=== PATIENT | female | born 1990 | race Caucasian/White ===

== ENCOUNTER → 2017-07-30 | Outpatient (CLI) | payer OTHER ==
[~2017-07-30] MED LIST: LIDOCAINE 1%, 20ML ONE
== END ==
LOC: CFH 10:29
PROVIDERS: ATTEND Surgery
DX: N63.10 Unspecified lump in the right breast, unspecified quadrant (principal)
CPT/HCPCS: 76641; 76942; 77065; 87070; 87075; 87205; 88173; 88305; J3490

== ENCOUNTER 2017-08-19 06:44 | Day surgery (SDC) | payer OTHER ==
[~2017-08-19] VITALS: Ht 152.4 cm; Wt 57.2 kg
[2017-08-19] MEDS ORDERED: NONE PER PT (07:42)
[2017-08-19 07:43] VITALS: BP 116/50
[2017-08-19] MEDS ORDERED: LACTATED RINGERS 1,000 ML IV SCH (08:12)
[2017-08-19] MEDS ORDERED: EPINEPHRINE 1 MG/ML, 1ML ONE (08:50)
[2017-08-19] MEDS ORDERED: BUPIVACAINE/PF 0.25% ONE (08:51)
[2017-08-19] MEDS ORDERED: FENTANYL PF 100 MCG/2ML ONE ×2 (08:51→09:53)
[2017-08-19] MEDS ORDERED: MIDAZOLAM 1 MG/ML, 2ML ONE ×2 (08:51→09:53)
[2017-08-19 08:52] LABS: HCG UR SG 1.014 (1.003-1.030)
[2017-08-19] MEDS ORDERED: PROPOFOL 10 MG/ML, 20ML ONE ×2 (09:04→09:11)
[2017-08-19] MEDS ORDERED: KETOROLAC 30 MG/1 ML ONE (09:06)
[2017-08-19] MEDS ORDERED: ONDANSETRON 2MG/ML, 2ML ONE (09:06)
[2017-08-19] MEDS ORDERED: DEXAMETHASONE 4 MG/ML, 1ML ONE (09:06)
[2017-08-19] MEDS ORDERED: EPHEDRINE 50 MG/ML, 1ML IVPush PRN (09:30)
[2017-08-19] MEDS ORDERED: LABETALOL 5MG/ML, 20ML IV PRN (09:30)
[2017-08-19] MEDS ORDERED: morphine SULFATE 10 MG/ML, 1ML IV PRN (09:30)
[2017-08-19] MEDS ORDERED: LORazepam 2 MG/ML, 1ML IVPush PRN (09:30)
[2017-08-19] MEDS ORDERED: PROMETHAZINE 25 MG/ML, 1ML IV PRN (09:30)
[2017-08-19] MEDS ORDERED: MEPERIDINE/PF 25MG/0.5ML IVPush PRN (09:30)
[2017-08-19] MEDS ORDERED: PROMETHAZINE 12.5 MG SUPP PR PRN (09:30)
[2017-08-19] MEDS ORDERED: ONDANSETRON 2MG/ML, 2ML IVPush PRN (09:30)
[2017-08-19] MEDS ORDERED: ACETAMINOPHEN 325 MG TABLET PO PRN (09:30)
[2017-08-19] MEDS ORDERED: OXYcodone 5 MG/5 ML ORAL.SOL UDC ONE (09:47)
[2017-08-19] MEDS ORDERED: ACETAMINOPHEN 650 MG/20.3 ML UDC ONE (09:47)
[2017-08-19] MEDS: OXYcodone 5 MG/5 ML ORAL.SOL UDC PO PRN ×2 (09:51→11:49)
[2017-08-19] MEDS: FENTANYL PF 100 MCG/2ML IV PRN ×3 (09:55→10:20)
[2017-08-19] MEDS: MIDAZOLAM 1 MG/ML, 2ML IV PRN ×2 (09:55→10:04)
[2017-08-19] MEDS ORDERED: DIPHENHYDRAMINE 50 MG/ML, 1ML IVPush ONE (11:00)
[2017-08-19] MEDS ORDERED: MORPHINE SULFATE 4 MG/ML, 1ML IVPush ONE (13:00)
[2017-08-19] MEDS ORDERED: morphine SULFATE 10 MG/ML, 1ML IVPush ONE (13:00)
== END 2017-08-19 15:25 ==
LOC: OUT 06:44
PROVIDERS: ATTEND Surgery
DX: N61.1 Abscess of the breast and nipple (principal)
CPT/HCPCS: 19020; 81025; 87070; 87075; 87077; 87186; 87205; J0171; J1100; J1885; J2250; J2270; J2405; J2704; J3010; J3490; J7120

== ENCOUNTER → 2017-11-08 | Outpatient (CLI) | payer OTHER ==
[~2017-11-08] MED LIST changes: +HYDROmorphone 2 MG/ML, 1ML ONE; -LIDOCAINE 1%, 20ML ONE; +NONE PER PT
== END ==
LOC: CFH 12:03
PROVIDERS: ATTEND Surgery
DX: Z02.9 Encounter for administrative examinations, unspecified (principal)
CPT/HCPCS: J1170

== ENCOUNTER 2018-08-22 18:32 | Emergency (ER) | payer OTHER ==
[~2018-08-22] VITALS: Ht 152.4 cm; Wt 58.0 kg
[~2018-08-22 18:32] MED LIST changes: -HYDROmorphone 2 MG/ML, 1ML ONE
[2018-08-22] MEDS ORDERED: PLEASE ENTER HEIGHT AND WEIGHT MC SCH (19:30)
[2018-08-22] MEDS ORDERED: ASPIRIN 81 MG TABLET CHEW PO ONE (19:30)
[2018-08-22 19:47] LABS: BASOPHILS % (AUTO) 0 % (0-1); EOSINOPHILS # (AUTO) 0.06 x10^3/uL (0-0.4); EOSINOPHILS % (AUTO) 1 % (1-7); LYMPHOCYTES # (AUTO) 1.61 x10^3/uL (1-3.4); LYMPHOCYTES % (AUTO) 30 % (22-44); MD NO; MEAN CORPUSCULAR HEMOGLOBIN 29.5 pg (27.0-34.8); MEAN CORPUSCULAR VOLUME 86.8 fL (80-100); MEAN PLATELET VOLUME 8.9 fL (7.4-10.4); MONOCYTES # (AUTO) 0.34 x10^3/uL (0.2-0.8); MONOCYTES % (AUTO) 6 % (2-9); NEUTROPHILS # (AUTO) 3.35 x10^3/uL (1.8-6.8); NEUTROPHILS % (AUTO) 63 % (42-75); PLATELET COUNT 241 x10^3/uL (130-400); RED BLOOD COUNT 5.32 x10^6/uL (3.82-5.3); RED CELL DISTRIBUTION WIDTH 12.4 % (9.6-15.2)
--- NOTE | 2018-08-22 19:50 | NUR ---
ASPIRIN HELD PER DR. DENTON. PATIENT UPDATED
[2018-08-22 19:58] LABS: ALBUMIN 4.6 g/dL (3.4-5.0); ANION GAP 6 mmol/L (5-15); CALCIUM 9.6 mg/dL (8.5-10.1); CHLORIDE 106 mmol/L (98-107)
[2018-08-22] MEDS ORDERED: SUMATRIPTAN 6MG/0.5ML SQ ONE ×2 (20:00→20:14)
--- NOTE | 2018-08-22 20:07 | NUR ---
"WEIRD FEELING" (PRESSURE) IN HEAD, STATED LOST PERIFERAL VISION FOR 2 HOURS. SPEECH INTERMITTENTLY SLURRED, THOUGHT PROCESS' "NOT RIGHT." PER PATIENT. STARTED AROUND 1600 WHILE AT WORK. NOT ON MENSTRUAL CYCLE. DENIES OBVIOUS CONTRIBUTING FACTORS. APPEARS WELL. FAST EXAM NEGATIVE. TO MEDICATE W/ IMITREX (PROVIDER BELIVES COMPLEX MIGRAINE). CALL PICHARDO IN HAND RESTING IN BED ON TRAFFIC [employer] OFFICER
--- NOTE | 2018-08-22 21:07 | NUR ---
PATIENT REPORT NO RESOILUTION IN SXS AFTER IMMITREX. NOW FEELS LIKE MY HEAD IS HOT. VSS, REMIANS ON MONIOTRO W. SPARTNER AT BEDSIDE. PROVIDER MADE AWARE. CALL PICHARDO IN HAND RESTING W/ SIDE RAILS UP. WILL CONTINUE TO MONITOR
[2018-08-22] MEDS ORDERED: KETOROLAC 30 MG/1 ML ONE (21:24)
[2018-08-22] MEDS ORDERED: KETOROLAC 30 MG/1 ML IM ONE (21:30)
[2018-08-22 21:32] VITALS: BP 94/64
== END 2018-08-22 21:43 | disposition home or self-care (01) ==
LOC: ED 21:21
DX: R51 Headache (principal); J01.00 Acute maxillary sinusitis, unspecified
CPT/HCPCS: 36415; 70450; 80048; 82040; 82962; 84703; 85025; 93005; 96372; 99284; J1885; J3030

== ENCOUNTER 2018-08-23 13:39 | Emergency (ER) | payer OTHER ==
[~2018-08-23] VITALS: Ht 152.4 cm; Wt 59.0 kg
[2018-08-23 13:59] VITALS: BP 115/77
--- NOTE | 2018-08-23 17:00 | NUR ---
pt resting on gurney. rr even and unlabored. awaiting provider to see pt. pt placed on cont spo2 and bp monitor
[2018-08-23] MEDS ORDERED: KETOROLAC 30 MG/1 ML ONE (17:51)
[2018-08-23] MEDS ORDERED: SUMATRIPTAN 6MG/0.5ML SQ ONE ×2 (17:51→18:00)
[2018-08-23] MEDS ORDERED: KETOROLAC 30 MG/1 ML IM ONE (18:00)
== END 2018-08-23 19:28 | disposition home or self-care (01) ==
LOC: ED 16:22
DX: G43.909 Migraine, unspecified, not intractable, without status migrainosus (principal)
CPT/HCPCS: 96372; 99283; J1885; J3030

== ENCOUNTER 2020-04-19 07:41 | Emergency (ER) | payer SELFPAY ==
[~2020-04-19] VITALS: Ht 152.4 cm; Wt 64.6 kg
[2020-04-19 07:44] VITALS: BP 123/71
== END 2020-04-19 10:26 | disposition home or self-care (01) ==
LOC: ED 07:52
DX: O26.891 Other specified pregnancy related conditions, first trimester (principal); G43.909 Migraine, unspecified, not intractable, without status migrainosus; R11.0 Nausea; Z3A.08 8 weeks gestation of pregnancy; Z90.10 Acquired absence of unspecified breast and nipple
CPT/HCPCS: 36415; 84703; 99283